=== PATIENT | male | born 1975 ===

== ENCOUNTER 2017-07-02 20:12 | Emergency (ER) | payer BC ==
[~2017-07-02] VITALS: Ht 185.4 cm; Wt 99.8 kg
[2017-07-02] MEDS ORDERED: KETOROLAC TROMETHAMINE 15 MG INJ IV ONE (21:30)
[2017-07-02] MEDS ORDERED: IV NORMAL SALINE 1000 ML BAG IV ONE (21:30)
[2017-07-02] MEDS ORDERED: ONDANSETRON 4 MG/2 ML VIAL IV ONE (21:30)
[2017-07-02] MEDS ORDERED: MORPHINE SULFATE 2 MG/1 ML DISP.SYRIN IV ONE (21:30)
[2017-07-02] MEDS ORDERED: MORPHINE SULFATE 4 MG/1 ML DISP.SYRIN ONE ×2 (21:47→23:01)
[2017-07-02] MEDS ORDERED: KETOROLAC TROMETHAMINE 30 MG INJ ONE (21:47)
[2017-07-02] MEDS ORDERED: ONDANSETRON 4 MG/2 ML VIAL ONE (21:48)
[2017-07-02 21:51] LABS: BASOPHILS % (AUTO) 0.3 % (0.0-2.0); EOSINOPHILS % (AUTO) 0.1 % (0.0-7.0); HEMATOCRIT 45.8 % (36.7-47.1); HEMOGLOBIN 15.8 g/dL (12.5-16.3); LYMPHOCYTES # (AUTO) 1.3 K/uL (20.0-40.0); LYMPHOCYTES % (AUTO) 10.3 % (20.5-51.5); MEAN CORPUSCULAR HEMOGLOBIN 30.1 uug (23.8-33.4); MEAN CORPUSCULAR HGB CONC 35 g/dL (32.5-36.3); MEAN CORPUSCULAR VOLUME 87.1 fL (73.0-96.2); MONOCYTES # (AUTO) 0.8 K/uL (2.0-10.0); MONOCYTES % (AUTO) 6.3 % (0.0-11.0); NEUTROPHILS # (AUTO) 10.6 K/uL (1.8-8.9); PLATELET COUNT (AUTO) 162 K/uL (152-348); RED BLOOD CELL COUNT(AUTO) 5.25 MIL/uL (4.06-5.63); WHITE BLOOD COUNT (AUTO) 12.7 K/uL (3.6-10.2)
[2017-07-02 21:56] LABS: CREATININE 1.4 mg/dL (0.6-1.3); POTASSIUM 3.7 mmol/L (3.5-5.1)
--- NOTE | 2017-07-02 22:00 | NUR ---
[address] with no significant events
[2017-07-02 22:19] LABS: *BILIRUBIN,URIN NEGATIVE (NEGATIVE); *BLOOD, URINE Trace-lysed (NEGATIVE); *CLARITY,URINE CLEAR (CLEAR); *COLOR,URINE YELLOW (YELLOW); *KETONES,URINE NEGATIVE (NEGATIVE); *PROTEIN,URINE NEGATIVE (NEGATIVE); *UROBILINOGEN,URINE 0.2 E.U./dl (NORMAL); LEUKOCYTE ESTERASE ,URINE NEGATIVE (NEGATIVE); NITRITE, URINE NEGATIVE (NEGATIVE); PH,URINE 6.5 (5.0-8.0); UGLUCOSE NEGATIVE (NEGATIVE)
[2017-07-02 22:25] LABS: RBC,URINE 0-3 /HPF (0-3); SQUAMOUS EPITHELIAL CELL,UR FEW /HPF (NONE SEEN); WBC,URINE NONE SEEN /HPF (0-3)
[2017-07-02] MEDS ORDERED: MORPHINE SULFATE 4 MG/1 ML DISP.SYRIN IV ONE (22:45)
--- NOTE | 2017-07-02 22:54 | NUR ---
Call to Simona from [facility]. Faxed patient info and test results. Pending call back Addendum: 07/02/17 at 2341 by ENEIDA Denied transfer at this time
--- NOTE | 2017-07-02 23:25 | NUR ---
Call to [facility] for transfer. Denied, per contact center representative
--- NOTE | 2017-07-02 23:35 | NUR ---
Call to Aminta from [facility] regarding transfer. Addendum: 07/02/17 at 2343 by ENEIDA Denied at this time for transfer
--- NOTE | 2017-07-03 00:51 | NUR ---
Enrique gonzalez in ED - 07/03/17 at 0058 by ENEIDA Call to the following medical centers, all of which are unable to accept the patient at this time. -[address] [facility] -[address] [place] [address]
--- NOTE | 2017-07-03 00:58 | NUR ---
Call to the following medical centers, all of which are unable to accept the patient at this time. [place] [facility] [place]
--- NOTE | 2017-07-03 01:03 | NUR ---
Brother, Ren, would like to be informed if patient is being transferred to another facility.
[2017-07-03] MEDS ORDERED: HYDROMORPHONE 1 MG/1 ML DISP.SYRIN IV PRN (03:00)
--- NOTE | 2017-07-03 03:00 | NUR ---
Continued calls for transfer to the following facilities - [facility] Not accepting patient at this time either due to no available bed or no accepting physician.
--- NOTE | 2017-07-03 04:57 | NUR ---
Patient is resting in bed. States acceptable comfort level at this time. Will continue to monitor.
[2017-07-03] MEDS ORDERED: PIPERACILLIN SODIUM/TAZOBACTAM 3.375 G in IV DEXTROSE 5% 50 ML IV ONE (05:15)
[2017-07-03] MEDS ORDERED: PIPERACILLIN/TAZOBACTAM/D5W 50 ML IV ONE (05:32)
--- NOTE | 2017-07-03 06:53 | NUR ---
Patient in stable condition. A/Ox4. States feeling much more comfortable this morning with minimal flank pain. Slight hyperthermia with Tmax 99.2F orally. Hemodynamically stable. SpO2 and RR WNL on room air. Good urinary output, no stone excretion noted. No return calls from any facilities regarding transfer. Will endorse to day shift nurse. Needs attended to. Call light in reach. SBAR to be given to day shift RN
--- NOTE | 2017-07-03 07:19 | NUR ---
PT IS IN ROOM #2B. DR VARGAS EVALUATED THE PT. PT IS RESTING IN BED COMFORTABLY. NO S/S OF ACUTE DISTRESS AT THIS TIME. CONTINUE TO MONITOR THE PT.
--- NOTE | 2017-07-03 08:09 | NUR ---
[facility] WAS CALLED AT 0747 BY ADMITING PERSON VALENTIN. HE TALKED TO CASE VIKY BYNUM. WAITING FOR HER CALL BACK WITH UROLOGIST INFORMATION.
[2017-07-03] MEDS ORDERED: HYDROMORPHONE 2 MG/1 ML DISP.SYRIN ONE (08:56)
--- NOTE | 2017-07-03 12:53 | NUR ---
PT WAS TRANSFERED TO [facility] ROOM #768-[address] ARMENDARIZ IS ADMITTING MD FOR HIM. REPORT WAS GIVEN TO WADE GUEVARA FROM [facility].
== END 2017-07-03 13:00 | disposition short-term general hospital (02) ==
LOC: ER 20:12
DX: N28.89 Other specified disorders of kidney and ureter (principal); N23 Unspecified renal colic; I10 Essential (primary) hypertension; K57.30 Diverticulosis of large intestine without perforation or abscess without bleeding; R11.2 Nausea with vomiting, unspecified
CPT/HCPCS: 36415; 74176; 80048; 81001; 85025; 85730; 96361; 96365; 96375; 96376; 99285; A4663; J1170; J1885; J2270 ×2; J2405; J2543; J7030